=== PATIENT | female | born 1940 | race Caucasian/White ===

== ENCOUNTER 2019-07-17 15:09 | Emergency (ER) | payer MEDICARE, BC ==
[~2019-07-17] VITALS: Ht 175.3 cm; Wt 72.7 kg
[2019-07-17 15:26] VITALS: TEMP 98.2
[2019-07-17 17:00] LABS: BASO # 0.1 (0.0-0.2); BASO % 0.6 % (0.0-2.0); EOS # 0.3 (0.0-0.7); EOS % 2.3 % (0-4.0); GRAN # 5.5 (1.4-6.5); GRAN % 49.6 % (42.2-75.2); HEMATOCRIT 42.3 % (37.0-47.0); HEMOGLOBIN 14.1 g/dl (12.5-16.0); LYMPH # 4.2 (1.2-3.4); LYMPH % 37.6 % (20.0-51.0); MEAN CELL VOLUME 89 fl (80.0-100.0); MEAN CORPUSCULAR HEMOGLOBIN 30 pg (27.0-31.0); MEAN CORPUSCULAR HGB CONC 33 g/dl (33.0-37.0); MEAN PLATELET VOLUME 11.1 fl (7.4-10.4); MONO # 1.1 (0.1-0.6); MONO % 9.6 % (1.7-9.3); PLATELET COUNT 267 K/mm3 (130-400); RED BLOOD COUNT 4.77 M/mm3 (4.10-5.30); REDCELL DISTRIBUTION WIDTH-CV 15.3 % (11.5-14.5)
[2019-07-17 17:04] LABS: PH 7 (5-8); SQUAMOUS EPITHELIAL 0-2 /hpf; URINE APPEARANCE Clear; URINE BACTERIA None Seen /hpf; URINE BILIRUBIN Negative (NEGATIVE); URINE BLOOD 1+ (NEGATIVE); URINE COLOR Yellow; URINE GLUCOSE Negative (NEGATIVE); URINE KETONE Negative (NEGATIVE); URINE LEUKOCYTE ESTERASE Trace (NEGATIVE); URINE NITRATE Negative (NEGATIVE); URINE PROTEIN(semi-quant) Negative (NEGATIVE); URINE UROBILINOGEN Negative (NEGATIVE)
[2019-07-17 17:13] LABS: COLLECTION METHOD CLEAN CATCH
[2019-07-17 17:22] LABS: ALANINE AMINOTRANSFERASE 20 U/L (9-52); ALBUMIN 4.4 gm/dL (3.5-5.0); ALKALINE PHOSPHATASE 91 U/L (50-136); ANION GAP 9 mmol/L (7-16); AST,SGOT 44 U/L (15-37); BILIRUBIN,TOTAL 0.3 mg/dL (0.0-1.0); BLOOD UREA NITROGEN 21 mg/dL (7-17); CALCIUM 9.6 mg/dL (8.4-10.2); CARBON DIOXIDE 28 mmol/L (22-30); CHLORIDE 104 mmol/L (98-107); CREATININE, serum 0.75 (0.52-1.25); GLUCOSE 86 mg/dL (74-106); POTASSIUM 3.8 mmol/L (3.4-5.0); SODIUM 141 mmol/L (137-145); TOTAL PROTEIN 7.6 gm/dL (6.4-8.2)
[2019-07-17 17:33] LABS: TROPONIN-I < 0.012 ng/mL (0.000-0.035)
[2019-07-17] MEDS ORDERED: NORVASC 5MG5 MG/TAB PO (18:12)
[2019-07-17 19:27] VITALS: BP 183/85; PULSE 61
== END 2019-07-17 19:34 | disposition home or self-care (01) ==
LOC: COL.ER 15:09
PROVIDERS: Emergency Medicine
DX: I10 Essential (primary) hypertension (principal); R51 Headache; J44.9 Chronic obstructive pulmonary disease, unspecified; Z87.891 Personal history of nicotine dependence; Z85.038 Personal history of other malignant neoplasm of large intestine